=== PATIENT | male | born 1965 | race Caucasian/White ===

== ENCOUNTER 2019-06-10 15:44 | Emergency (ER) | payer BC ==
[~2019-06-10] VITALS: Ht 177.8 cm; Wt 81.6 kg
[2019-06-10 15:54] VITALS: Ht 177.8 cm; Wt 81.6 kg
[2019-06-10 17:28] VITALS: BP 148/82
== END 2019-06-10 18:12 | disposition home or self-care (01) ==
LOC: ED 15:44
DX: E11.649 Type 2 diabetes mellitus with hypoglycemia without coma (principal); I10 Essential (primary) hypertension; R55 Syncope and collapse
CPT/HCPCS: 82962